=== PATIENT | female | born 1985 | race Caucasian/White ===

== ENCOUNTER 2025-10-31 03:32 | Emergency (ER) | payer SELFPAY ==
[2025-10-31 03:35] VITALS: BP 159/87
[2025-10-31 03:52] VITALS: BMI 52.6
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
[2025-10-31 05:45] VITALS: BP 120/76
== END 2025-10-31 06:27 | disposition home or self-care (01) ==
LOC: EMR 03:32
PROVIDERS: EMERGENCY PHYSICIAN Student in an Organized Health Care Education/Training Program
DX: S60.222A Contusion of left hand, initial encounter (principal); S10.91XA Abrasion of unspecified part of neck, initial encounter; V89.2XXA Person injured in unspecified motor-vehicle accident, traffic, initial encounter; Y92.410 Unspecified street and highway as the place of occurrence of the external cause; E03.9 Hypothyroidism, unspecified; F41.9 Anxiety disorder, unspecified; F32.A Depression, unspecified; G43.709 Chronic migraine without aura, not intractable, without status migrainosus
CPT/HCPCS: 99284; 29125; 70450; 71250; 72125; 73110; 73130